=== PATIENT | male | born 2000 | race Two or more races ===

== ENCOUNTER 2021-11-01 10:35 | Emergency (ER) | payer MEDICAID, OTHER ==
[~2021-11-01] VITALS: Ht 167.6 cm; Wt 54.4 kg
[2021-11-01 10:51] VITALS: BP 123/68
[2021-11-01] MEDS ORDERED: TETANUS-DIPTH-ACEL PERTUSSIS 0.5ML SYR Tdap IM ONE (11:00)
[2021-11-01] MEDS ORDERED: CEPH-509 PO (11:02)
== END 2021-11-01 11:16 | disposition home or self-care (01) ==
LOC: ER 10:35
DX: S91.332A Puncture wound without foreign body, left foot, initial encounter (principal); Z79.899 Other long term (current) drug therapy; W45.0XXA Nail entering through skin, initial encounter; Y93.89 Activity, other specified; Y92.89 Other specified places as the place of occurrence of the external cause; Y99.8 Other external cause status
CPT/HCPCS: 90471; 90715

== ENCOUNTER 2022-02-15 08:56 | Emergency (ER) | payer MEDICAID ==
[~2022-02-15] VITALS: Ht 170.2 cm; Wt 50.0 kg
[~2022-02-15 08:56] MED LIST: CEPH-509 PO
[2022-02-15 11:14] LABS: Basophils # (auto) 0.1 10 ^3/uL (0-0.2); Basophils % (auto) 0.3 % (0.0-2.0); Eosinophils # (auto) 0 10 ^3/uL (0-0.8); Eosinophils % (auto) 0.1 % (0.0-7.0); Hematocrit 45.3 % (41.0-53.0); Hemoglobin 15.6 g/dL (13.5-17.5); Lymphocytes # (auto) 1.5 10 ^3/uL (0.4-5.4); Lymphocytes % (auto) 10.3 % (10.0-50.0); Mean Corpuscular Hemoglobin 30.2 pg (28.0-32.0); Mean Corpuscular Hgb Conc. 34.4 g/dL (32.0-36.0); Mean Corpuscular Volume 87.7 fL (80.0-100.0); Monocytes # (auto) 1.5 10 ^3/uL (0-1.3); Monocytes % (auto) 10.1 % (0.0-12.0); Neutrophils # (auto) 11.7 10 ^3/uL (1.6-8.6); Neutrophils % (auto) 79.2 % (37.0-80.0); Red Blood Cells 5.17 10^6/uL (4.5-5.90); Red Cell Distribution Width 12.5 % (11.8-14.3); White Blood Cell 14.8 10^3/uL (4.4-10.8)
[2022-02-15 11:31] LABS: INR 1.04 (0.9-1.15); Partial Thromboplastin Time 31.9 sec (24.6-33.4)
[2022-02-15] MEDS ORDERED: SODIUM CHLORIDE 0.9% 1,000 ML IVB ONE (11:45)
[2022-02-15 11:46] LABS: Albumin 3.6 g/dL (3.4-5.0); BUN/Creatinine Ratio 13.1; Bilirubin, Total 0.8 mg/dL (0.2-1.0); Calcium 8.7 mg/dL (8.5-10.1); Potassium 4.4 mmol/L (3.5-5.1); Total Protein 7.7 g/dL (6.4-8.2)
[2022-02-15 12:35] LABS: Urine Bacteria NONE SEEN /hpf (None Seen); Urine Blood Negative /uL (Negative); Urine Specific Gravity 1.015 (1.001-1.035); Urine WBC 8 /hpf (0 - 3)
[2022-02-15 12:45] VITALS: BP 130/75
== END 2022-02-15 13:25 | disposition home or self-care (01) ==
LOC: EDBD 08:56 → ER 08:59
DX: K52.9 Noninfective gastroenteritis and colitis, unspecified (principal); K90.49 Malabsorption due to intolerance, not elsewhere classified
CPT/HCPCS: 36415; 71045; 80053; 81001; 85025; 85610; 85730; 96360; 99284; J7030

== ENCOUNTER 2024-07-16 22:22 | Emergency (ER) | payer MEDICAID ==
[~2024-07-16] VITALS: Ht 170.2 cm; Wt 51.2 kg
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
[2024-07-16] MEDS: HYDROcodone-ACET 5/325MG TAB PO ONE (23:15)
[2024-07-16] MEDS: IBUPROFEN 600 MG TAB PO ONE (23:15)
[2024-07-16 23:40] VITALS: BP 117/74; PULSE 71; RESP 18; TEMP 98.6; O2SAT 100
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
[2024-07-16] MEDS ORDERED: TIZA-142 PO (23:59)
[2024-07-16] MEDS ORDERED: METH4PAK PO (23:59)
== END 2024-07-17 00:25 | disposition home or self-care (01) ==
LOC: ER 22:22
DX: S29.012A Strain of muscle and tendon of back wall of thorax, initial encounter (principal); Z79.899 Other long term (current) drug therapy; V49.49XA Driver injured in collision with other motor vehicles in traffic accident, initial encounter; Y93.89 Activity, other specified; Y92.89 Other specified places as the place of occurrence of the external cause; Y99.8 Other external cause status
CPT/HCPCS: 72070